=== PATIENT | male | born 1990 | race Caucasian/White ===

== ENCOUNTER 2022-04-25 22:53 | Inpatient (IN) | payer MEDICAID, SELFPAY ==
[2022-04-25 23:04] VITALS: BMI 25.7
--- NOTE | 2022-04-25 23:05 | W.ED.PSYCHS ---
Documented by User: JASMIN Wood 04/26/22 00:24 HPI - Psych General: Chief Complaint: Psychiatric Symptoms Stated Complaint: SI with plan Time Seen by Provider: 04/25/22 22:55 History of Present Illness: 31-year-old male patient comes in today for complaints of suicidal ideation. Patient at this time is in [facility] for his use of marijuana and nicotine. Patient reports that he was feeling suicidal and wanted to cut his wrists with a sharp rock he had found in the parking lot of the facility. Patient reports that he had a recent attempt of suicide about 3 months ago for overdosing on his antipsychotic medication. Patient has a history of suicidal ideation, schizophrenia, borderline personality disorder, and marijuana use. Patient denies any use of illicit substances tonight. Patient is alert and responds appropriately to questions. MD complaint: suicidal ideation Onset (ago): hour(s) Duration: getting worse History of same: Yes Relieving factors: none Context: recent drug abuse Associated psychiatric symptoms: suicidal ideation Associated symptoms: Reports suicidal ideation If self harm: has plan Review of Systems General: Reports: 10 or more systems reviewed and unremarkable except in HPI and below Const: Denies: fever(s) Card: Denies: chest pain Resp: Denies: dyspnea Musc: Denies: neck pain or back pain Psych: Reports: suicidal ideation [facility] ED PFSH: Medical History (Updated 05/08/22 @ 11:05 by BOB Rae) No pertinent family history Surgical History (Updated 05/08/22 @ 11:05 by BOB Rae) No pertinent past surgical history Physical Exam Const: COMMON NORMALS: alert HENMT: COMMON NORMALS: normocephalic HEAD & SCALP: normocephalic Neck/C-Spine: COMMON NORMALS: full ROM Resp: COMMON NORMALS: normal respiratory effort Cardio: COMMON NORMALS: regular rate RATE: regular rate Extremity: COMMON NORMALS: normal to inspection and full ROM Neuro: SENSORIUM/ORIENTATION: Yes alert Skin: COMMON NORMALS: no rashes or lesions noted and no wounds GENERAL SKIN EXAM: no rashes or lesions noted Course ED course: 2319, reviewed patient with Dr. Wells who agreed to the 96-hour hold due to patient's risk to self and affidavits from the [facility] staff and the law enforcement personnel. Patient is voluntary for the admission at this time also. 0020, discussed patient with Dr. Cardoso who agreed to admission to NPU to his service. Vital Signs: Vital signs: Vital Signs Temperature 98 F 05/05/22 15:57 Pulse Rate 81 05/05/22 15:57 Respiratory Rate 18 05/05/22 15:57 Blood Pressure 115/76 05/05/22 15:57 Pulse Oximetry 97 05/05/22 15:57 Oxygen Delivery Me thod 05/05/22 14:00 MDM - Psych Medical Decision Making 31-year-old male patient comes in [facility] ([facility]3]ight with suicidal ideation with a plan. Patient reports that he wants to cut his wrists with a sharp rock. Patient at this time is under treatment at [facility] for cannabis abuse. Patient does have a history of borderline personality disorder and suicidal ideation. Patient reports a recent attempt about 3 months ago for overdose on his Geodon. Patient is cooperative and is wanting admission to the neuropsychiatric unit. Lungs are clear to auscultation. Vital signs are normal. Differential diagnosis includes but not limited to suicidal ideation, major depressive disorder, adjustment disorder, substance abuse disorder, malingering. Laboratory values were unremarkable. Patient had no illicit substances on board. I reviewed the patient with Dr. Wells who agreed to the 96-hour hold and consultation with psychiatry for admission to the neuropsychiatric unit. Dr. Cardoso was consulted and agreed to plan for admission. Patient needs admission for further evaluation of psychiatric illness and risk to self due to suicidal ideation. Lab Data : 04/25/22 23:35 04/25/22 23:35 Laboratory Results WBC 8.7 10^3/uL (4.0-10.0) 04/25/22 23:35 RBC 4.98 10^6/uL (4.1-5.3) 04/25/22 23:35 Hgb 14.1 g/dL (11.7-16.6) 04/25/22 23:35 Hct 43.6 % (42.0-52.0) 04/25/22 23:35 MCV 87.6 fl (80-94) 04/25/22 23:35 MCH 28.3 pg (28.0-34.0) 04/25/22 23:35 MCHC 32.3 g/dL (30.0-36.0) 04/25/22 23:35 RDW 13.0 % (12.1-15.1) 04/25/22 23:35 Plt Count 251 10^3/cmm (130-400) 04/25/22 23:35 MPV 9.9 fL (7.4-10.4) 04/25/22 23:35 Neut % (Auto) 48.9 % 04/25/22 23:35 Lymph % (Auto) 36.4 % 04/25/22 23:35 Cobb % (Auto) 9.0 % 04/25/22 23:35 Eos % (Auto) 4.6 % 04/25/22 23:35 Baso % (Auto) 0.9 % 04/25/22 23:35 Neut # (Auto) 4.26 10^3/uL (1.8-7.7) 04/25/22 23:35 Lymph # (Auto) 3.2 10^3/uL (0.8-4.8) 04/25/22 23:35 [place] # (Auto) 0.8 10^3/uL (0.2-0.9) 04/25/22 23:35 Eos # (Auto) 0.4 10^3/uL (0.0-0.8) 04/25/22 23:35 Baso # (Auto) 0.1 10^3/uL (0.0-0.1) 04/25/22 23:35 Nucleated RBC % (auto) 0 % 04/25/22 23: Nucleated RBCs # 0.0 /100WBC 04/25/22 23:35 Sodium 135 mmol/L (136-145) L 04/25/22 23:35 Potassium 4.3 mmol/L (3.5-5.1) 04/25/22 23:35 Chloride 97 mmol/L (98-107) L 04/25/22 23:35 Carbon Dioxide 28 mmol/L (22-29) 04/25/22 23:35 Anion Gap 14.3 (5-19) 04/25/22 23:35 BUN 6 mg/dL (6-20) 04/25/22 23:35 Creatinine 0.9 mg/dL (0.7-1.2) 04/25/22 23:35 GFR Calculation 98.4 mL/min (90-130) 04/25/22 23:35 Glucose 111 mg/dL (65-115) 04/25/22 23:35 Calculated Osmolality 278 mOsm/kg (285-295) L 04/25/22 23:35 Calcium 9.6 mg/dL (8.5-10.5) 04/25/22 23:35 Total Bilirubin 0.6 mg/dL (0.15-1.2) 04/25/22 23:35 AST 37 U/L (0-40) 04/25/22 23:35 ALT 99 U/L (0-41) H 04/25/22 23:35 Alkaline Phosphatase 91 IU/L (40-130) 04/25/22 23:35 Total Protein 7.4 g/dL (6.6-8.7) 04/25/22 23:35 Albumin 4.6 g/dL (3.5-5.2) 04/25/22 23:35 Globulin 2.8 g/dL (1.3-4.6) 04/25/22 23:35 TSH 12.19 uIU/mL (0.27-4.20) H 04/25/22 23:35 Free T4 1.10 ng/dL (0.82-1.77) 04/25/22 23:35 Urine Color Straw (Yellow) 04/25/22 23:35 Urine Appearance Clear (CLEAR) 04/25/22 23:35 Urine pH 8 (5-7) H 04/25/22 23:35 Ur Specific [place] 1.010 (1.005-1.030) 04/25/22 23:35 Urine Protein Neg (Negative) 04/25/22 23:35 Urine Glucose (UA) Norm (Normal) 04/25/22 23:35 Urine Ketones Negative (Negative) 04/25/22 23:35 Urine Blood Neg (Negative) 04/25/22 23:35 Urine Nitrate Negative (Negative) 04/25/22 23:35 Urine Bilirubin Neg (Negative) 04/25/22 23:35 Prot Sulfosalicylic Acd Negative (Negative) 04/25/22 23:35 Urine Urobilinogen Neg mg/dL (Negative) 04/25/22 23:35 Ur Leukocyte Esterase Negative (Negative) 04/25/22 23:35 Salicylates 0.6 mg/dL (3-10) L 04/25/22 23:35 Urine Opiates Screen Negative ng/mL (Negative) 04/25/22 23:35 Acetaminophen < 5.0 ug/mL (10-30) L 04/25/22 23:35 Ur Barbiturates Screen Negative ng/mL (Negative) 04/25/22 23:35 Ur Phencyclidine Scrn Negative ng/mL (Negative) 04/25/22 23:35 Ur Amphetamines Screen Negative ng/mL (Negative) 04/25/22 23:35 U Benzodiazepines Scrn Negative ng/mL (Negative) 04/25/22 23:35 [place] 0.7 mmol/L (0.6-1.2) 04/25/22 23:35 Urine Cocaine Screen Negative ng/mL (Negative) 04/25/22 23:35 U Marijuana (THC) Screen Negative ng/mL (Negative) 04/25/22 23:35 Ethyl Alcohol < 10 mg/dL (0-10) 04/25/22 23:35 Discharge Plan Discharge Patient Disposition: Admitted As Inpatient Admit Provider: Fran Cardoso Clinical Impression: Suicidal ideation, Chronic schizophrenia Condition: Stable Discharge Diet: Regular Discharge Activity: Resume usual activity Sign Out Sign Out Data: Patient Sign Out occurred on 04/26/22 at 00:47. Patient's care was discussed, and care was transferred from to Vincent Wells MD. Coding Level of Care Code ED Mold Dresser for Chg Fwd Exam Detailed Documented by User: Vincent Wells MD 05/10/22 20:15 HPI - Psych General: Chief Complaint: Psychiatric Symptoms Stated Complaint: SI with plan Time Seen by Provider: 04/25/22 22:55 PFSH ED PFSH: Medical History (Updated 05/08/22 @ 11:05 by BOB Rae) No pertinent family history Surgical History (Updated 05/08/22 @ 11:05 by BOB Rae) No pertinent past surgical history Course Vital Signs: Vital signs: Vital Signs Temperature 98 F 05/05/22 15:57 Pulse Rate 81 05/05/22 15:57 Respiratory Rate 18 05/05/22 15:57 Blood Pressure 115/76 05/05/22 15:57 Pulse Oximetry 97 05/05/22 15:57 Oxygen Delivery Me thod 05/05/22 14:00 MDM - Psych Medical Decision Making 31-year-old male patient comes in [facility] with suicidal ideation with a plan. Patient reports that he wants to cut his wrists with a sharp rock. Patient at this time is under treatment at [facility] for cannabis abuse. Patient does have a history of borderline personality disorder and suicidal ideation. Patient reports a recent attempt about 3 months ago for overdose on his Geodon. Patient is cooperative and is wanting admission to the neuropsychiatric unit. Lungs are clear to auscultation. Vital signs are normal. Differential diagnosis includes but not limited to suicidal ideation, major depressive disorder, adjustment disorder, substance abuse disorder, malingering. Laboratory values were unremarkable. Patient had no illicit substances on board. I reviewed the patient with Dr. Wells who agreed to the 96-hour hold and consultation with psychiatry for admission to the neuropsychiatric unit. Dr. Cardoso was consulted and agreed to plan for admission. Patient needs admission for further evaluation of psychiatric illness and risk to self due to suicidal ideation. I discussed this case with Federico Melton NP. I reviewed laboratory studies and documentation. Vincent Wells MD Emergency Medicine Lab Data : 04/25/22 23:35 04/25/22 23:35 Laboratory Results WBC 8.7 10^3/uL (4.0-10.0) 04/25/22 23:35 RBC 4.98 10^6/uL (4.1-5.3) 04/25/22 23:35 Hgb 14.1 g/dL (11.7-16.6) 04/25/22 23:35 Hct 43.6 % (42.0-52.0) 04/25/22 23:35 MCV 87.6 fl (80-94) 04/25/22 23:35 MCH 28.3 pg (28.0-34.0) 04/25/22 23:35 MCHC 32.3 g/dL (30.0-36.0) 04/25/22 23:35 RDW 13.0 % (12.1-15.1) 04/25/22 23:35 Plt Count 251 10^3/cmm (130-400) 04/25/22 23:35 MPV 9.9 fL (7.4-10.4) 04/25/22 23:35 Neut % (Auto) 48.9 % 04/25/22 23:35 Lymph % (Auto) 36.4 % 04/25/22 23:35 Cobb % (Auto) 9.0 % 04/25/22 23:35 Eos % (Auto) 4.6 % 04/25/22 23:35 Baso % (Auto) 0.9 % 04/25/22 23:35 Neut # (Auto) 4.26 10^3/uL (1.8-7.7) 04/25/22 23:35 Lymph # (Auto) 3.2 10^3/uL (0.8-4.8) 04/25/22 23:35 [place] # (Auto) 0.8 10^3/uL (0.2-0.9) 04/25/22 23:35 Eos # (Auto) 0.4 10^3/uL (0.0-0.8) 04/25/22 23:35 Baso # (Auto) 0.1 10^3/uL (0.0-0.1) 04/25/22 23:35 Nucleated RBC % (auto) 0 % 04/25/22 23:35 Nucleated RBCs # 0.0 /100WBC 04/25/22 23:35 Sodium 135 mmol/L (136-145) L 04/25/22 23:35 Potassium 4.3 mmol/L (3.5-5.1) 04/25/22 23:35 Chloride 97 mmol/L (98-107) L 04/25/22 23:35 Carbon Dioxide 28 mmol/L (22-29) 04/25/22 23:35 Anion Gap 14.3 (5-19) 04/25/22 23:35 BUN 6 mg/dL (6-20) 04/25/22 23:35 Creatinine 0.9 mg/dL (0.7-1.2) 04/25/22 23:35 GFR Calculation 98.4 mL/min (90-130) 04/25/22 23:35 Glucose 111 mg/dL (65-115) 04/25/22 23:35 Calculated Osmolality 278 mOsm/kg (285-295) L 04/25/22 23:35 Calcium 9.6 mg/dL (8.5-10.5) 04/25/22 23:35 Total Bilirubin 0.6 mg/dL (0.15-1.2) 04/25/22 23:35 AST 37 U/L (0-40) 04/25/22 23:35 ALT 99 U/L (0-41) H 04/25/22 23:35 Alkaline Phosphatase 91 IU/L (40-130) 04/25/22 23:35 Total Protein 7.4 g/dL (6.6-8.7) 04/25/22 23:35 Albumin 4.6 g/dL (3.5-5.2) 04/25/22 23:35 Globulin 2.8 g/dL (1.3-4.6) 04/25/22 23:35 TSH 12.19 uIU/mL (0.27-4.20) H 04/25/22 23:35 Free T4 1.10 ng/dL (0.82-1.77) 04/25/22 23:35 Urine Color Straw (Yellow) 04/25/22 23:35 Urine Appearance Clear (CLEAR) 04/25/22 23:35 Urine pH 8 (5-7) H 04/25/22 23:35 Ur Specific [place] 1.010 (1.005-1.030) 04/25/22 23:35 Urine Protein Neg (Negative) 04/25/22 23:35 Urine Glucose (UA) Norm (Normal) 04/25/22 23:35 Urine Ketones Negative (Negative) 04/25/22 23:35 Urine Blood Neg (Negative) 04/25/22 23:35 Urine Nitrate Negative (Negative) 04/25/22 23:35 Urine Bilirubin Neg (Negative) 04/25/22 23:35 Prot Sulfosalicylic Acd Negative (Negative) 04/25/22 23:35 Urine Urobilinogen Neg mg/dL (Negative) 04/25/22 23:35 Ur Leukocyte Esterase Negative (Negative) 04/25/22 23:35 Salicylates 0.6 mg/dL (3-10) L 04/25/22 23:35 Urine Opiates Screen Negative ng/mL (Negative) 04/25/22 23:35 Acetaminophen < 5.0 ug/mL (10-30) L 04/25/22 23:35 Ur Barbiturates Screen Negative ng/mL (Negative) 04/25/22 23:35 Ur Phencyclidine Scrn Negative ng/mL (Negative) 04/25/22 23:35 Ur Amphetamines Screen Negative ng/mL (Negative) 04/25/22 23:35 U Benzodiazepines Scrn Negative ng/mL (Negative) 04/25/22 23:35 [place] 0.7 mmol/L (0.6-1.2) 04/25/22 23:35 Urine Cocaine Screen Negative ng/mL (Negative) 04/25/22 23:35 U Marijuana (THC) Screen Negative ng/mL (Negative) 04/25/22 23:35 Ethyl Alcohol < 10 mg/dL (0-10) 04/25/22 23:35 Discharge Plan Discharge Patient Disposition: Admitted As Inpatient Admit Provider: Fran Cardoso Clinical Impression: Suicidal ideation, Chronic schizophrenia Condition: Stable Discharge Diet: Regular Discharge Activity: Resume usual activity Sign Out Sign Out Data: Patient Sign Out occurred on 04/26/22 at 00:47. Patient's care was discussed, and care was transferred from to Vincent Wells MD. Coding Level of Care Code ED Mold Dresser for Wagnerg Fwd Exam Detailed
[2022-04-25 23:14] VITALS: BP 118/85; PULSE 72; RESP 16; TEMP 36.8; O2SAT 97
[2022-04-26] LABS: Add Urine Microscopic? NO; Charge for UA Resulting for Rev
[2022-04-26 00:03] LABS: Basophils # 0.1 10^3/uL (0.0-0.1); Basophils % 0.9 %; Eosinophils # 0.4 10^3/uL (0.0-0.8); Eosinophils % 4.6 %; Hematocrit 43.6 % (42.0-52.0); Hemoglobin 14.1 g/dL (11.7-16.6); Lymphocytes # 3.2 10^3/uL (0.8-4.8); Lymphocytes % 36.4 %; Mean Corpuscular HGB Conc 32.3 g/dL (30.0-36.0); Mean Corpuscular Hemoglobin 28.3 pg (28.0-34.0); Mean Corpuscular Volume 87.6 fl (80-94); Mean Platelet Volume 9.9 fL (7.4-10.4); Monocytes # 0.8 10^3/uL (0.2-0.9); Neutrophils # 4.26 10^3/uL (1.8-7.7); Neutrophils % 48.9 %; Nucleated Red Blood Cells % 0 %; Platelet Count 251 10^3/cmm (130-400); Red Blood Count 4.98 10^6/uL (4.1-5.3); White Blood Count 8.7 10^3/uL (4.0-10.0)
[2022-04-26 00:04] LABS: Lithium 0.7 mmol/L (0.6-1.2)
[2022-04-26 00:05] LABS: Bilirubin Urine Neg (Negative); Blood Urine Neg (Negative); Glucose Urine UA Norm (Normal); Ketones Urine Negative (Negative); Leukocyte Esterase Urine Negative (Negative); Nitrate Urine Negative (Negative); Protein Urine Neg (Negative); Sulfosalicylic Acid Urine Negative (Negative); Urine Appearance Clear (CLEAR); Urine Color Straw (Yellow); Urobilinogen Urine Neg (Negative); pH Urine 8 (5-7)
[2022-04-26 00:06] LABS: Amphetamines Screen Urine Negative (Negative); Barbiturates Screen Urine Negative (Negative); Benzodiazepines Screen Urine Negative (Negative); Cocaine Screen Urine Negative (Negative); Opiate Screen Urine Negative (Negative); PCP Screen Urine Negative (Negative); THC Screen Urine Negative (Negative)
[2022-04-26 00:19] LABS: Alanine Aminotransferase 99 U/L (0-41); Albumin Level 4.6 g/dL (3.5-5.2); Alkaline Phosphatase 91 IU/L (40-130); Anion Gap 14.3 (5-19); Aspartate Amino Transferase 37 U/L (0-40); Blood Urea Nitrogen 6 mg/dL (6-20); Calcium 9.6 mg/dL (8.5-10.5); Carbon Dioxide 28 mmol/L (22-29); Chloride 97 mmol/L (98-107); Globulin 2.8 g/dL (1.3-4.6); Glomerular Filtration Rate 98.4 mL/min (90-130); Glucose 111 mg/dL (65-115); Osmolality Calculated 278 mOsm/kg (285-295); Potassium 4.3 mmol/L (3.5-5.1); Salicylate 0.6 mg/dL (3-10); Sodium 135 mmol/L (136-145); Thyroid Stimulating Hormone 12.19 uIU/mL (0.27-4.20); Total Bilirubin 0.6 mg/dL (0.15-1.2); Total Protein 7.4 g/dL (6.6-8.7)
[2022-04-26 00:21] LABS: Acetaminophen < 5.0 ug/mL (10-30); Alcohol Level < 10 mg/dL (0-10)
[2022-04-26 01:23] VITALS: BP 114/79; PULSE 73; RESP 15; O2SAT 98
[2022-04-26 01:31] VITALS: BP 121/83; PULSE 88; RESP 18; TEMP 36.7; O2SAT 96
[2022-04-26 05:54] VITALS: BP 115/75; PULSE 74; RESP 16; TEMP 36.6; O2SAT 97
[2022-04-26 06:00] VITALS: BMI 25.7
[2022-04-26] MEDS: OLANZapine 5 mg ODT PO ×2 (09:09→13:22)
--- NOTE | 2022-04-26 09:11 | PC.NURSE ---
Patient with c/o anxiety this am. Zydis 5 mg sl given for this.
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
[2022-04-26] MEDS: fluoxetine 20 mg Capsule 40 MG PO (13:22)
[2022-04-26] MEDS: pantoprazole DR 40 mg Tablet PO (13:22)
--- NOTE | 2022-04-26 13:32 | PC.NURSE ---
Patient voiced increased anxiety. Zydis 5 mg sl given for this.
[2022-04-26 14:00] VITALS: BP 100/63; PULSE 84; RESP 20; TEMP 36.6; O2SAT 98
[2022-04-26 15:23] LABS: Lithium 0.4 mmol/L (0.6-1.2)
[2022-04-26] MEDS: lithium carbonate 300 mg Capsule PO (17:07)
[2022-04-26] MEDS: OXcarbazepine 300 mg Tablet PO (17:08)
[2022-04-26] MEDS: prazosin 1 mg Capsule 2 MG PO (19:54)
[2022-04-26] MEDS: trazodone 100 mg Tablet PO (19:54)
[2022-04-26 20:25] VITALS: BP 101/60; PULSE 61; RESP 15; TEMP 36.8; O2SAT 96
[2022-04-26 21:00] VITALS: BP 101/60; PULSE 61; RESP 15; TEMP 36.8; O2SAT 96
[2022-04-27 06:00] VITALS: BP 106/72; PULSE 65; RESP 15; TEMP 36.4; O2SAT 96
[2022-04-27] MEDS: lithium carbonate 300 mg Capsule PO ×2 (09:54→17:37)
[2022-04-27] MEDS: fluoxetine 20 mg Capsule 40 MG PO (09:54)
[2022-04-27] MEDS: pantoprazole DR 40 mg Tablet PO (09:54)
[2022-04-27] MEDS: OXcarbazepine 300 mg Tablet PO ×2 (09:54→17:44)
[2022-04-27] MEDS: lurasidone 20 mg Tablet 120 MG PO (09:58)
--- NOTE | 2022-04-27 11:57 | P.NPUPN_ITS ---
Subjective NPU Subjective: Patient presents today reporting that he is feeling okay. He continues to make comments that_his significant psychosis at this time. He talked about believing that he was the Archangel Jamshid and that he was sent to either destroy or save the world. He continues to lament about how the people who are in the program at [facility] had ill intent towards him. We discussed the medication Lybalvi and his treatment team trying to get tested. He really would look and see where that process was but that otherwise he might consider Abilify as an alternative and he seemed to understand and agreed proceed as is documented in his note. Mental Status Exam MSE Comments: This is a well nourished, well developed white male in hospital scrubs with limited grooming and eye contact. No abnormal movements except for psychomotor retardation. Mostly cooperative with exam in mild distress. Speech was decreased rate and volume. Mood described as depressed but manic and grungy, affect is subdued and restricted. Thought process, organized. Thought content: patient endorses passive wish but denies suicidal or homicidal ideation, endorses paranoia and grandiose, hyperreligious and persecutory delusions noted, and endorses auditory and visual hallucinations. Attention and concentration are mostly intact and memory appeared reliable though none were formally tested. He is alert and oriented three times. Insight and judgment are impaired. Impulse control is impaired. Vitals/I&O/Wt Last Vital Signs Temp 97.6 F 04/27/22 06:00 Pulse 65 04/27/22 06:00 Resp 15 04/27/22 06:00 BP 106/72 04/27/22 06:00 Pulse Ox 96 04/27/22 06:00 O2 Del Method 04/27/22 06:00 Weight last 48 hrs Weight 78.925 kg Weight 78.925 kg Data NPU : 04/25/22 23:35 04/25/22 23:35 A&P Assessment and plan (1) Suicidal ideation: Status: Acute (2) Chronic schizophrenia: Status: Acute Plan This is a 31 year old white male with a history of trauma, bipolar disorder and genetic loading for mental health and addiction issues who presents with active delusions reporting he believes everyone is out to kill him from [facility] [place], endorsing some success on medications and open to changes in his medications. 1. Continue current medications. We will evaluate and adjust medications as indicated. Treatment team at [facility] were trying to get him access to medication Lybalvi given that he has had limited success with other medications. Considering starting Abilify with his permission if that is not viable. 2. Encourage individual, group and milieu therapy 3. Continue q-15 minute check for safety 4. Recommend sober living treatment at the highest level of care to which the patient is willing to commit. Involuntary Hold Information 96 Hour Hold: 96 Hour Involuntary Admission: Yes 96 Hour Hold Ending Date: 04/30/22 96 Hour Hold Ending Time: 01:30 Attestations NPU Medical Necessity Statement*: Inpatient hospitalization is medically necessary and the clinically appropriate intervention at this time. We will monitor medications and make changes as indicated. Likely length of stay is 4-6 days. 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
[2022-04-27 14:00] VITALS: BP 95/65; PULSE 80; RESP 20; TEMP 36.6; O2SAT 95
[2022-04-27] MEDS: hyDROXYzine 25 mg Capsule 50 MG PO (16:35)
--- NOTE | 2022-04-27 16:37 | PC.NURSE ---
Patient at the nurses station with c/o anxiety. Hydroxyzine 50 mg po given.
[2022-04-27] MEDS: prazosin 1 mg Capsule 2 MG PO (19:48)
[2022-04-27] MEDS: trazodone 50 mg Tablet PO (19:49)
[2022-04-27 20:07] VITALS: BP 100/56; PULSE 69; RESP 15; TEMP 36.7; O2SAT 97
--- NOTE | 2022-04-27 20:26 | PC.NURSE ---
No suicidal thoughts at this time.
[2022-04-28 06:00] VITALS: BP 126/76; PULSE 68; RESP 17; TEMP 36.7; O2SAT 96
[2022-04-28] MEDS: fluoxetine 20 mg Capsule 40 MG PO (08:47)
[2022-04-28] MEDS: lithium carbonate 300 mg Capsule PO ×2 (08:47→18:26)
[2022-04-28] MEDS: OXcarbazepine 300 mg Tablet PO ×2 (08:47→18:26)
[2022-04-28] MEDS: pantoprazole DR 40 mg Tablet PO (08:47)
[2022-04-28 13:19] VITALS: BP 105/71; PULSE 62; RESP 17; TEMP 36.9; O2SAT 94
--- NOTE | 2022-04-28 15:33 | PC.NURSE ---
Medication ordered at [facility] Laybalvi 06/22 PO Once daily 30day supply with 1 refill
[2022-04-28] MEDS: lurasidone 80 mg Tablet 120 MG PO (16:30)
--- NOTE | 2022-04-28 17:42 | W.PM.NPUPNS ---
Subjective NPU Subjective: Patient presents today reporting that he is doing okay however his conversation continues to point to significant psychotic symptoms continuing to speak about being the Archangel Jamshid etc.. Ultimately will determine that he did get approved for the medication Lybalvi. However we have had some difficulty getting into the medication because Medicare is asking for specific piece of information before they approve a pharmacy to release it to us. Mental Status Exam MSE Comments: This is a well nourished, well developed white male in hospital scrubs with limited grooming and eye contact. No abnormal movements except for psychomotor retardation. Mostly cooperative with exam in mild distress. Speech was decreased rate and volume. Mood described as depressed but manic and grungy, affect is subdued and restricted. Thought process, organized. Thought content: patient endorses passive wish but denies suicidal or homicidal ideation, endorses paranoia and grandiose, hyperreligious and persecutory delusions noted, and endorses auditory and visual hallucinations. Attention and concentration are mostly intact and memory appeared reliable though none were formally tested. He is alert and oriented three times. Insight and judgment are impaired. Impulse control is impaired. Vitals/I&O/Wt Last Vital Signs Temp 98.2 F 04/28/22 20:12 Pulse 69 04/28/22 20:12 Resp 16 04/28/22 20:12 BP 107/65 04/28/22 20:12 Pulse Ox 100 04/28/22 20:12 O2 Del Method 04/28/22 20:12 Data NPU : 04/25/22 23:35 04/25/22 23:35 A&P Assessment and plan (1) Suicidal ideation: Status: Acute (2) Chronic schizophrenia: Status: Acute Plan This is a 31 year old white male with a history of trauma, bipolar disorder and genetic loading for mental health and addiction issues who presents with active delusions reporting he believes everyone is out to kill him from [facility] [place], endorsing some success on medications and open to changes in his medications. 1. Continue current medications. We will evaluate and adjust medications as indicated. Treatment team at [facility] were trying to get him access to medication Lybalvi given that he has had limited success with other medications. Considering starting Abilify with his permission if that is not viable. 2. Encourage individual, group and milieu therapy 3. Continue q-15 minute check for safety 4. Recommend sober living treatment at the highest level of care to which the patient is willing to commit. Involuntary Hold Information 96 Hour Hold: 96 Hour Involuntary Admission: Yes 96 Hour Hold Ending Date: 04/30/22 96 Hour Hold Ending Time: 01:30 Attestations NPU Medical Necessity Statement*: Inpatient hospitalization is medically necessary and the clinically appropriate intervention at this time. We will monitor medications and make changes as indicated. Likely length of stay is 4-6 days. 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
[2022-04-28] MEDS: OLANZapine 5 mg ODT PO (19:58)
[2022-04-28] MEDS: trazodone 50 mg Tablet PO (19:58)
[2022-04-28] MEDS: prazosin 1 mg Capsule 2 MG PO (19:59)
[2022-04-28 20:12] VITALS: BP 107/65; PULSE 69; RESP 16; TEMP 36.8; O2SAT 100
[2022-04-29 06:00] VITALS: BP 100/64; PULSE 65; RESP 15; TEMP 36.7; O2SAT 98
[2022-04-29] MEDS: pantoprazole DR 40 mg Tablet PO (08:14)
[2022-04-29] MEDS: lithium carbonate 300 mg Capsule PO (08:14)
[2022-04-29] MEDS: fluoxetine 20 mg Capsule 40 MG PO (08:14)
[2022-04-29] MEDS: OXcarbazepine 300 mg Tablet PO ×2 (08:14→23:24)
[2022-04-29] MEDS: lurasidone 80 mg Tablet 120 MG PO (08:15)
[2022-04-29] MEDS: OLANZapine 5 mg ODT PO ×2 (10:52→17:35)
--- NOTE | 2022-04-29 11:07 | PC.NURSE ---
PRN MEDICATIONS PT UP TO NURSES STATION REQUESTING ANXIETY MEDS. ZYDIS 5 MG GIVEN ORDERED.
[2022-04-29 14:00] VITALS: BP 96/64; PULSE 77; RESP 18; TEMP 36.9; O2SAT 98
--- NOTE | 2022-04-29 16:29 | W.PM.NPUPNS ---
Subjective NPU Subjective: Patient presents today reporting that he is still feeling as he has since he came here. We discussed the plan related to Medicare and the prior authorization which has been done and approved but then there is additional paperwork the Medicare is requiring to start the Lybalvi. They sent that paperwork today and we have signed and returned it and that we are awaiting their release of the medication. Mental Status Exam MSE Comments: This is a well nourished, well developed white male in hospital scrubs with limited grooming and eye contact. No abnormal movements except for psychomotor retardation. Mostly cooperative with exam in mild distress. Speech was decreased rate and volume. Mood described as depressed, affect is subdued and restricted. Thought process, organized. Thought content: patient endorses passive wish but denies suicidal or homicidal ideation, endorses paranoia and grandiose, hyperreligious and persecutory delusions noted, and endorses auditory and visual hallucinations. Attention and concentration are mostly intact and memory appeared reliable though none were formally tested. He is alert and oriented three times. Insight and judgment are impaired. Impulse control is impaired. Vitals/I&O/Wt Last Vital Signs Temp 98.5 F 04/29/22 14:00 Pulse 77 04/29/22 14:00 Resp 18 04/29/22 14:00 BP 96/64 04/29/22 14:00 Pulse Ox 98 04/29/22 14:00 O2 Del Method 04/29/22 06:00 Data NPU : 04/25/22 23:35 04/25/22 23:35 A&P Assessment and plan (1) Suicidal ideation: Status: Acute (2) Chronic schizophrenia: Status: Acute Plan This is a 31 year old white male with a history of trauma, bipolar disorder and genetic loading for mental health and addiction issues who presents with active delusions reporting he believes everyone is out to kill him from [facility] [place], endorsing some success on medications and open to changes in his medications. 1. Continue current medications. We will evaluate and adjust medications as indicated. Treatment team at [facility] were trying to get him access to medication Lybalvi given that he has had limited success with other medications. Started Lybalvi 10-10mg po qdaily when arrives. 2. Encourage individual, group and milieu therapy 3. Continue q-15 minute check for safety 4. Recommend sober living treatment at the highest level of care to which the patient is willing to commit. Involuntary Hold Information 96 Hour Hold: 96 Hour Involuntary Admission: Yes 96 Hour Hold Ending Date: 04/30/22 96 Hour Hold Ending Time: 01:30 Attestations NPU Medical Necessity Statement*: Inpatient hospitalization is medically necessary and the clinically appropriate intervention at this time. We will monitor medications and make changes as indicated. Likely length of stay is 4-6 days. 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
--- NOTE | 2022-04-29 17:25 | PC.NURSE ---
NEW ORDERS RECEIVED FROM DR. MICHEL TO OBTAIN FASTING GLUCOSE/ LIPID LEVEL AND LITHIUM AND OXYCARBAZIPINE LEVEL. HOLD LITHIUM AND OXYCARBAZIPINE UNTIL AFTER LABS ARE DRAWN TONIGHT AND THEN GIVE MEDS ORDERED. ALL LABS ENTERED, MEDS PLACED ON HOLD. PT EDUCATED ON NEW ORDERS. FILLED OUT PAPER WORK FOR [employer] TO GET LYBALVI 10-10MG, WILL FAX INFO IN THE AM TO INSURANCE ONCE LABS ARE DRAWN AND ALL INFORMATION IS OBTAINED.
--- NOTE | 2022-04-29 17:35 | PC.NURSE ---
PRN ZYPREXA ZYDIS 5 MG GIVEN PO PER PT C/O AGITATION
[2022-04-29 20:00] VITALS: BP 113/70; PULSE 65; RESP 17; TEMP 36.9; O2SAT 97
[2022-04-29] MEDS: trazodone 100 mg Tablet PO (20:10)
[2022-04-29] MEDS: prazosin 1 mg Capsule 2 MG PO (20:10)
[2022-04-29 20:49] LABS: Lithium 0.5 mmol/L (0.6-1.2)
[2022-04-29] MEDS: lithium carbonate 300 mg Capsule 600 MG PO (23:24)
--- NOTE | 2022-04-29 23:29 | PC.NURSE ---
Notified of [place] level of 0.5 from the lab.Oxcarbazapine lab is pending until Wednesday. Order recieved to increase [place] to 600 mg po at night and [place] 300 mg in the morning.
[2022-04-30 06:00] VITALS: BP 88/57; PULSE 59; RESP 16; TEMP 36.8; O2SAT 97
[2022-04-30] MEDS: OXcarbazepine 300 mg Tablet PO ×2 (07:55→22:46)
[2022-04-30] MEDS: pantoprazole DR 40 mg Tablet PO (07:55)
[2022-04-30] MEDS: lurasidone 80 mg Tablet 120 MG PO (07:56)
[2022-04-30] MEDS: lithium carbonate 300 mg Capsule PO (07:56)
[2022-04-30] MEDS: fluoxetine 20 mg Capsule 40 MG PO (07:56)
[2022-04-30 08:18] LABS: Cholesterol 211 mg/dL (0-200); Glucose Fasting 93 mg/dL (74-109); HDL Cholesterol 37 mg/dL (60-100); LDL Cholesterol Calculated 135 mg/dL (50-129); LDL HDL Ratio 3.65 RATIO (0.00-3.22); Triglycerides 197 mg/dL (0-150)
[2022-04-30] MEDS: hyDROXYzine 25 mg Capsule 50 MG PO (11:54)
--- NOTE | 2022-04-30 11:55 | PC.NURSE ---
PRN VISTARIL 50 MG GIVEN PO PER PT C/O STATED ANXIETY
[2022-04-30 14:00] VITALS: BP 101/66; PULSE 82; RESP 16; TEMP 36.6; O2SAT 96
--- NOTE | 2022-04-30 17:23 | P.NPUPN_ITS ---
Subjective NPU Subjective: Patient presents today reporting that he is excited about the prospect of starting the medication. He seems to be less driven about his concerns for people harming him at the [facility] facility. We discussed our plan to hopefully initiate medication and make sure that he is going in the r ight direction before returning him back to [facility] for continued treatment. He was agreeable to that plan and has signed in voluntarily. Mental Status Exam MSE Comments: This is a well nourished, well developed white male in hospital scrubs with limited grooming and eye contact. No abnormal movements except for psychomotor retardation. Mostly cooperative with exam in mild distress. Speech was decreased rate and volume. Mood described as a little better, affect is subdued and restricted. Thought process, organized. Thought content: patient endorses passive wish but denies suicidal or homicidal ideation, endorses paranoia and grandiose, hyperreligious and persecutory delusions noted, and endorses auditory and visual hallucinations. Attention and concentration are mostly intact and memory appeared reliable though none were formally tested. He is alert and oriented three times. Insight and judgment are impaired. Impulse control is impaired. Vitals/I&O/Wt Last Vital Signs Temp 98 F 04/30/22 19:50 Pulse 72 04/30/22 19:50 Resp 17 04/30/22 19:50 BP 121/81 04/30/22 19:50 Pulse Ox 97 04/30/22 19:50 O2 Del Method 04/30/22 19:50 Data NPU : 04/25/22 23:35 04/25/22 23:35 A&P Assessment and plan (1) Suicidal ideation: Status: Acute (2) Chronic schizophrenia: Status: Acute Plan This is a 31 year old white male with a history of trauma, bipolar disorder and genetic loading for mental health and addiction issues who presents with active delusions reporting he believes everyone is out to kill him from [facility], endorsing some success on medications and open to changes in his medications. 1. Continue current medications. We will evaluate and adjust medications as indicated. Treatment team at [facility] were trying to get him access to medication Lybalvi given that he has had limited success with other medications. Started Lybalvi 10-10mg po qdaily when arrives hopefully tomorrow. 2. Encourage individual, group and milieu therapy 3. Continue q-15 minute check for safety 4. Recommend sober living treatment at the highest level of care to which the patient is willing to commit. Involuntary Hold Information 96 Hour Hold: 96 Hour Involuntary Admission: Yes 96 Hour Hold Ending Date: 04/30/22 96 Hour Hold Ending Time: 01:30 Attestations NPU Medical Necessity Statement*: Inpatient hospitalization is medically necessary and the clinically appropriate intervention at this time. We will monitor medications and make changes as indicated. Likely length of stay is 3-5 days. 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
[2022-04-30 19:50] VITALS: BP 121/81; PULSE 72; RESP 17; TEMP 36.6; O2SAT 97
[2022-04-30] MEDS: OLANZapine 5 mg ODT PO (20:15)
[2022-04-30] MEDS: prazosin 1 mg Capsule 2 MG PO (20:15)
[2022-04-30] MEDS: lithium carbonate 300 mg Capsule 600 MG PO (20:15)
[2022-04-30] MEDS: trazodone 100 mg Tablet PO (20:16)
[2022-05-01 06:00] VITALS: BP 104/69; PULSE 64; RESP 15; TEMP 36.8; O2SAT 98
[2022-05-01] MEDS: lurasidone 80 mg Tablet 120 MG PO (09:27)
[2022-05-01] MEDS: OLANZapine 5 mg ODT PO (09:27)
[2022-05-01] MEDS: lithium carbonate 300 mg Capsule PO (09:28)
[2022-05-01] MEDS: fluoxetine 20 mg Capsule 40 MG PO (09:28)
[2022-05-01] MEDS: pantoprazole DR 40 mg Tablet PO (09:28)
[2022-05-01] MEDS: OXcarbazepine 300 mg Tablet PO ×2 (09:41→20:30)
[2022-05-01 14:00] VITALS: BP 109/72; PULSE 66; RESP 16; O2SAT 95
--- NOTE | 2022-05-01 15:52 | P.NPUPN_ITS ---
Subjective NPU Subjective: Patient presents today lying in bed and reporting that he is a little bit tired. He cannot identify whether this represented an issue with the new medication that was started (Lybalvi) or something else. We discussed that we had spoken to [facility] and the earliest they would be able to receive her back will be Wednesday. We discussed a hope that he has that he adjusted well to the medication over the next 3 days and he is able to go back on Wednesday if his thoughts have cleared up. Mental Status Exam MSE Comments: This is a well nourished, well developed white male in hospital scrubs with limited grooming and eye contact. No abnormal movements except for psychomotor retardation. Mostly cooperative with exam in mild distress. Speech was decreased rate and volume. Mood described as a little better, affect is subdued and restricted. Thought process, organized. Thought content: patient de nies suicidal or homicidal ideation, endorses paranoia and grandiose, hyperreligious and persecutory delusions noted, and endorses auditory and visual hallucinations. Attention and concentration are mostly intact and memory appeared reliable though none were formally tested. He is alert and oriented three times. Insight and judgment are impaired. Impulse control is impaired. Vitals/I&O/Wt Last Vital Signs Temp 98.2 F 05/01/22 06:00 Pulse 66 05/01/22 14:00 Resp 16 05/01/22 14:00 BP 109/72 05/01/22 14:00 Pulse Ox 95 05/01/22 14:00 O2 Del Method 05/01/22 14:00 Data NPU : 04/25/22 23:35 04/25/22 23:35 A&P Assessment and plan (1) Suicidal ideation: Status: Acute (2) Chronic schizophrenia: Status: Acute Plan This is a 31 year old white male with a history of trauma, bipolar disorder and genetic loading for mental health and addiction issues who presents with active delusions reporting he believes everyone is out to kill him from [facility], endorsing some success on medications and open to changes in his medications. 1. Continue current medications. We will evaluate and adjust medications as in dicated. Treatment team at [facility] were trying to get him access to medication Lybalvi given that he has had limited success with other medications. Started Lybalvi 10-10mg po qdaily. We will collaborate with the [facility] doctors to determine whether any changes in the [place] should occur prior to him going back. 2. Encourage individual, group and milieu therapy 3. Continue q-15 minute check for safety 4. Recommend sober living treatment at the highest level of care to which the patient is willing to commit. Involuntary Hold Information 96 Hour Hold: 96 Hour Involuntary Admission: Yes 96 Hour Hold Ending Date: 04/30/22 96 Hour Hold Ending Time: 01:30 Attestations NPU Medical Necessity Statement*: Inpatient hospitalization is medically necessary and the clinically appropriate intervention at this time. We will monitor medications and make changes as indicated. Likely length of stay is 3-4 days. 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
[2022-05-01] MEDS: acetaminophen 325 mg Tablet 650 MG PO (18:08)
--- NOTE | 2022-05-01 18:10 | PC.NURSE ---
NEW ORDERS NEW ORDERS FOR IBUPROFEN 600 MG Q 6 HOUR PRN FOR PAIN DUE TO C/O TOOTH PAIN
[2022-05-01] MEDS: lithium carbonate 300 mg Capsule 600 MG PO (20:30)
[2022-05-01] MEDS: prazosin 1 mg Capsule 2 MG PO (20:31)
[2022-05-01] MEDS: trazodone 100 mg Tablet PO (20:31)
[2022-05-01 22:00] VITALS: RESP 16
[2022-05-02 06:00] VITALS: RESP 16
[2022-05-02] MEDS: fluoxetine 20 mg Capsule 40 MG PO (09:12)
[2022-05-02] MEDS: lithium carbonate 300 mg Capsule PO (09:12)
[2022-05-02] MEDS: pantoprazole DR 40 mg Tablet PO (09:12)
[2022-05-02] MEDS: lurasidone 80 mg Tablet 120 MG PO (09:12)
[2022-05-02] MEDS: OXcarbazepine 300 mg Tablet PO ×2 (09:12→20:33)
[2022-05-02 14:00] VITALS: BP 113/76; PULSE 88; RESP 16; TEMP 36.4; O2SAT 95
--- NOTE | 2022-05-02 14:17 | P.NPUPN_ITS ---
Subjective NPU Subjective: Patient presents today reporting that he is feeling okay. He endorsed and hopes to return to [facility] however still expressing some of the paranoia related to being there. He reports he is tolerating the new medication and denying any concerns otherwise. We continue to discussed that th e earliest he would return to [facility] would be Wednesday but it would all be based on where he was with his psychosis. Mental Status Exam MSE Comments: This is a well nourished, well developed white male in hospital scrubs with limited grooming and eye contact. No abnormal movements except for psychomotor retardation. Mostly cooperative with exam in mild distress. Speech was decreased rate and volume. Mood described as a little better, affect is subdued and restricted. Thought process, organized. Thought content: patient denies suicidal or homicidal ideation, endorses less paranoia and grandiose, less hyperreligious and persecutory delusions noted, and endorses auditory and visual hallucinations. Attention and concentration are mostly intact and memory appeared reliable though none were formally tested. He is alert and oriented three times. Insight and judgment are impaired. Impulse control is impaired. Vitals/I&O/Wt Last Vital Signs Temp 97.6 F 05/02/22 14:00 Pulse 88 05/02/22 14:00 Resp 16 05/02/22 14:00 BP 113/76 05/02/22 14:00 Pulse Ox 95 05/02/22 14:00 O2 Del Method 05/02/22 14:00 Data NPU : 04/25/22 23:35 04/25/22 23:35 A&P Assessment and plan (1) Suicidal ideation: Status: Acute (2) Chronic schizophrenia: Status: Acute Plan This is a 31 year old white male with a history of trauma, bipolar disorder and genetic loading for mental health and addiction issues who presents with active delusions reporting he believes everyone is out to kill him from [facility] [place], endorsing some success on medications and open to changes in his medications. 1. Continue current medications. We will evaluate and adjust medications as indicated. Treatment team at [facility] were trying to get him access to medication Lybalvi given that he has had limited success with other medications. Started Lybalvi 10-10mg po qdaily. We will collaborate with the [facility] doctors to determine whether any changes in the [place] should occur prior to him going back. 2. Encourage individual, group and milieu therapy 3. Continue q-15 minute check for safety 4. Recommend sober living treatment at the highest level of care to which the patient is willing to commit. Involuntary Hold Information 96 Hour Hold: 96 Hour Involuntary Admission: Yes 96 Hour Hold Ending Date: 04/30/22 96 Hour Hold Ending Time: 01:30 Attestations NPU Medical Necessity Statement*: Inpatient hospitalization is medically necessary and the clinically appropriate intervention at this time. We will monitor medications and make changes as indicated. Likely length of stay is 3-4 days. Coding Level of Care Code Acute Management Aide for Chg Fwd Diagnoses Suicidal ideation R45.851 Chronic schizophrenia F20.9
[2022-05-02] MEDS: OLANZapine 5 mg ODT PO (17:52)
[2022-05-02] MEDS: phenyleph-mineral oil-petrolat Oint 28 gm 1 APPLIC TOPICAL (17:56)
[2022-05-02 20:20] VITALS: BP 106/62; PULSE 65; RESP 17; TEMP 36.6; O2SAT 95
[2022-05-02] MEDS: lithium carbonate 300 mg Capsule 600 MG PO (20:33)
[2022-05-02] MEDS: trazodone 100 mg Tablet PO (20:33)
[2022-05-02] MEDS: prazosin 1 mg Capsule 2 MG PO (20:33)
[2022-05-03 06:00] VITALS: BP 114/67; PULSE 54; RESP 106; TEMP 36.3; O2SAT 97
[2022-05-03] MEDS: lurasidone 80 mg Tablet 120 MG PO (07:51)
[2022-05-03] MEDS: fluoxetine 20 mg Capsule 40 MG PO (07:52)
[2022-05-03] MEDS: pantoprazole DR 40 mg Tablet PO (07:52)
[2022-05-03] MEDS: lithium carbonate 300 mg Capsule PO (07:52)
[2022-05-03] MEDS: OXcarbazepine 300 mg Tablet PO ×2 (07:55→19:51)
--- NOTE | 2022-05-03 09:09 | P.NPUPN_ITS ---
Subjective NPU Subjective: Patient presents today reporting that he is a little tired from the new medication. He did not report any thoughts about the individuals at [facility] having any ill thoughts towards him. And he did not seem to be anxious about seeing those people or that they might have ill will towards him. He reports that he is sleeping okay and eating fine. We discussed evaluating him in the morning to see if he is seeming to be prepared to face that challenge back to [facility] whether he needs another day or so on the medication. Mental Status Exam MSE Comments: This is a well nourished, well developed white male in hospital scrubs with limited grooming and eye contact. No abnormal movements except for mild psychomotor retardation. Mostly cooperative with exam in no acute distress. Speech was decreased rate and volume. Mood described as better, affect is less subdued and restricted. Thought process, organized. Thought content: patient denies suicidal or homicidal ideation, endorses less paranoia and less grandiose, no hyperreligious and less persecutory delusions noted, and denied active auditory and visual hallucinations. Attention and concentration are mostly intact and memory appeared reliable though none were formally tested. He is alert and oriented x3. Insight and judgment are improving. Impulse control is improving. Vitals/I&O/Wt Last Vital Signs Temp 97.3 F L 05/03/22 06:00 Pulse 54 L 05/03/22 06:00 Resp 106 H 05/03/22 06:00 BP 114/67 05/03/22 06:00 Pulse Ox 97 05/03/22 06:00 O2 Del Method 05/02/22 14:00 Weight last 48 hrs Weight 79.288 kg Data NPU : 04/25/22 23:35 04/25/22 23:35 A&P Assessment and plan (1) Suicidal ideation: Status: Acute (2) Chronic schizophrenia: Status: Acute Plan This is a 31 year old white male with a history of trauma, bipolar disorder and genetic loading for mental health and addiction issues who presents with active delusions reporting he believes everyone is out to kill him from [facility] [place], endorsing some success on medications and open to changes in his medications. 1. Continue current medications. We will evaluate and adjust medications as indicated. Treatment team at [facility] were trying to get him access to medication Lybalvi given that he has had limited success with other medications. Started Lybalvi 10-10mg po qdaily. We will collaborate with the [facility] doctors to determine whether any changes in the [place] should occur prior to him going back. 2. Encourage individual, group and milieu therapy 3. Continue q-15 minute check for safety 4. Recommend sober living treatment at the highest level of care to which the patient is willing to commit. Involuntary Hold Information 96 Hour Hold: 96 Hour Involuntary Admission: Yes 96 Hour Hold Ending Date: 04/30/22 96 Hour Hold Ending Time: 01:30 Attestations NPU Medical Necessity Statement*: Inpatient hospitalization is medically necessary and the clinically appropriate intervention at this time. We will monitor medications and make changes as indicated. Likely length of stay is 1-3 days. 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
[2022-05-03 13:57] VITALS: BP 104/68; PULSE 68; RESP 16; TEMP 36.7; O2SAT 97
[2022-05-03] MEDS: trazodone 100 mg Tablet PO (19:51)
[2022-05-03] MEDS: phenyleph-mineral oil-petrolat Oint 28 gm 1 APPLIC TOPICAL (19:51)
[2022-05-03] MEDS: lithium carbonate 300 mg Capsule 600 MG PO (19:52)
[2022-05-03] MEDS: prazosin 1 mg Capsule 2 MG PO (19:52)
[2022-05-03] MEDS: ondansetron 4 MG Tablet PO (19:56)
[2022-05-03 22:00] VITALS: BP 130/81; PULSE 76; RESP 20; TEMP 36.6; O2SAT 95
[2022-05-04 06:00] VITALS: BP 113/77; PULSE 68; RESP 18; TEMP 36.6; O2SAT 95
[2022-05-04] MEDS: pantoprazole DR 40 mg Tablet PO (07:50)
[2022-05-04] MEDS: lurasidone 80 mg Tablet 120 MG PO (07:50)
[2022-05-04] MEDS: fluoxetine 20 mg Capsule 40 MG PO (07:50)
[2022-05-04] MEDS: OXcarbazepine 300 mg Tablet PO ×2 (07:51→20:12)
[2022-05-04] MEDS: lithium carbonate 300 mg Capsule PO (07:51)
[2022-05-04 14:00] VITALS: BP 102/72; PULSE 68; RESP 17; TEMP 36.6; O2SAT 97
[2022-05-04 14:07] LABS: Oxcarbazepine Metabolite 9.5 mcg/mL (8.0-35.0)
--- NOTE | 2022-05-04 15:24 | W.PM.NPUPNS ---
Subjective NPU Subjective: Patient presents today reporting that he is tolerating the medication feeling maybe a little less tired. He continues to slowly be less fixated on there being a group of people at the rehab that have any particular issue with him. He denies any side effect of medication and we agreed he was still feeling good in the morning we would discharge him back to [facility] with hopes of continued improvement on the new medication. Mental Status Exam MSE Comments: This is a well nourished, well developed white male in hospital scrubs with limited grooming and eye contact. No abnormal movements except for mild psychomotor retardation. Mostly cooperative with exam in no acute distress. Speech was decreased rate and volume. Mood described as better, affect is less subdued. Thought process, organized. Thought content: patient denies suicidal or homicidal ideation, he denied any delusions and only slight paranoid thinking noted, and denied active auditory and visual hallucinations. Attention and concentration are mostly intact and memory appeared reliable though none were formally tested. He is alert and oriented x3. Insight and judgment are improving. Impulse control is improving. Vitals/I&O/Wt Last Vital Signs Temp 98 F 05/04/22 14:00 Pulse 68 05/04/22 14:00 Resp 17 05/04/22 14:00 BP 102/72 05/04/22 14:00 Pulse Ox 97 05/04/22 14:00 O2 Del Method 05/04/22 14:00 Weight last 48 hrs Weight 79.288 kg Data NPU : 04/25/22 23:35 04/25/22 23:35 A&P Assessment and plan (1) Suicidal ideation: Status: Acute (2) Chronic schizophrenia: Status: Acute Plan This is a 31 year old white male with a history of trauma, bipolar disorder and genetic loading for mental health and addiction issues who presents with active delusions reporting he believes everyone is out to kill him from [facility], endorsing some success on medications and open to changes in his medications. 1. Continue current medications. We will evaluate and adjust medications as indicated. Treatment team at [facility] were trying to get him access to medication Lybalvi given that he has had limited success with other medications. Started Lybalvi 10-10mg po qdaily. We will collaborate with the [facility] doctors to determine whether any changes in the Latuda should occur prior to him going back. 2. Encourage individual, group and milieu therapy 3. Continue q-15 minute check for safety 4. Recommend sober living treatment at the highest level of care to which the patient is willing to commit. 5. we will plan to discharge tomorrow morning and recommend that treatment team there begins possible decreasing of Latuda. Involuntary Hold Information 96 Hour Hold: 96 Hour Involuntary Admission: Yes 96 Hour Hold Ending Date: 04/30/22 96 Hour Hold Ending Time: 01:30 Attestations NPU Medical Necessity Statement*: Inpatient hospitalization is medically necessary and the clinically appropriate intervention at this time. We will monitor medications and make changes as indicated. Likely length of stay is 1-2 days. Tentative plan for discharge in the morning. Coding Level of Care Code Acute Meatman for Terri Smith Diagnoses Suicidal ideation R45.851 Chronic schizophrenia F20.9
[2022-05-04] MEDS: lithium carbonate 300 mg Capsule 600 MG PO (20:12)
[2022-05-04] MEDS: trazodone 100 mg Tablet PO (20:12)
[2022-05-04] MEDS: prazosin 1 mg Capsule 2 MG PO (20:12)
[2022-05-04 20:54] VITALS: BP 118/82; PULSE 63; RESP 16; TEMP 36.8; O2SAT 95
[2022-05-05 06:00] VITALS: BP 101/70; PULSE 80; RESP 18; TEMP 36.7; O2SAT 95
[2022-05-05] MEDS: lurasidone 80 mg Tablet 120 MG PO (08:35)
[2022-05-05] MEDS: pantoprazole DR 40 mg Tablet PO (08:35)
[2022-05-05] MEDS: fluoxetine 20 mg Capsule 40 MG PO (08:35)
[2022-05-05] MEDS: OXcarbazepine 300 mg Tablet PO (08:35)
[2022-05-05] MEDS: lithium carbonate 300 mg Capsule PO (08:36)
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
[2022-05-05 14:00] VITALS: BP 115/76; PULSE 81; RESP 18; TEMP 36.6; O2SAT 97
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
[2022-05-05 14:47] VITALS: BP 115/76; PULSE 81; RESP 18; TEMP 36.6; O2SAT 97
[2022-05-05 15:57] VITALS: BP 115/76; PULSE 81; RESP 18; TEMP 36.6; O2SAT 97
== END 2022-05-05 16:10 | disposition home or self-care (01) | DRG 885 ==
LOC: ER 04-26 00:22 → NP 04-26 00:47
PROVIDERS: Nurse Practitioner Family; Admitting Provider Psychiatry & Neurology Psychiatry; Emergency Provider Emergency Medicine; Visit Provider Psychiatry & Neurology Psychiatry
DX: F20.9 Schizophrenia, unspecified (principal); R45.851 Suicidal ideations; F12.90 Cannabis use, unspecified, uncomplicated; F17.200 Nicotine dependence, unspecified, uncomplicated; Z91.51 Personal history of suicidal behavior; F60.3 Borderline personality disorder; Z59.01 Sheltered homelessness; Z79.891 Long term (current) use of opiate analgesic
CPT/HCPCS: 36415; 80053; 80061; 80178; 80183; 80306; 80307; 81003; 82947; 84439; 84443; 85025; 97150; 97165; 99285; Q0162

== ENCOUNTER 2022-05-07 10:54 | Emergency (ER) | payer MEDICAID, SELFPAY ==
[2022-05-07 11:08] VITALS: BP 112/71; PULSE 72; RESP 16; TEMP 36.6; O2SAT 96; BMI 25.4
[2022-05-07 11:18] VITALS: BP 112/71; PULSE 72; RESP 16; TEMP 36.6; O2SAT 96
--- NOTE | 2022-05-07 11:21 | W.ED.EXTPRO ---
HPI - Extremity Problem General: Chief complaint: Extremity Injury, Upper Stated complaint: Urgent Care sent for an Xray Time Seen by Provider: 05/07/22 11:16 History of Present Illness: Patient is a 31-year-old male comes to the ED with right shoulder injury. Patient states a couple days ago he was stacking some lumber and he went to throw a piece and it caused pain in his right shoulder. He has full range of motion right shoulder endorses pain with movement. Denies any other complaints. Associated symptoms: Deny chest pain, fever(s) or rash Review of Systems Const: Denies: fever(s), chills or fatigue Eyes: Denies: change in vision or eye discomfort ENMT: Denies: throat pain, odynophagia, nasal discharge or nasal congestion Card: Denies: chest pain, palpitations, edema, swelling of feet/ankles, dyspnea on exertion or orthopnea Resp: Denies: dyspnea, productive cough or non-productive cough GI: Denies: abdominal pain, nausea, vomiting, diarrhea, constipation or hematochezia : Denies: flank pain, difficulty urinating, dysuria or hematuria Musc: Reports: extremity pain (right shoulder injury); Denies: neck pain, back pain or extremity swelling Skin/Breast: Denies: rash or new lesions Neuro: Denies: headache(s), numbness in extremities or weakness in extremities PFS ED PFSH: Medical History (Updated 05/08/22 @ 11:05 by BOB Rae) No pertinent family history Surgical History (Updated 05/08/22 @ 11:05 by BOB Rae) No pertinent past surgical history Physical Exam Const: COMMON NORMALS: patient oriented x3 HENMT: COMMON NORMALS: normocephalic HEAD & SCALP: normocephalic MOUTH: Normal oral and palatal mucosa present THROAT: posterior oropharynx normal and uvula midline Neck/C-Spine: COMMON NORMALS: supple GENERAL: Yes normal visual inspection Resp: COMMON NORMALS: normal respiratory effort, No retractions, No use of accessory muscles and clear to auscultation bilaterally AUSCULTATION: clear to auscultation bilaterally Cardio: COMMON NORMALS: regular rate, regular rhythm, S1 normal heart sound present, S2 normal heart sound present, No gallops present (Cardio), No clicks present (Cardio), No murmurs present (Cardio) and Peripheral pulses 2+ throughout RATE: regular rate RHYTHM: regular rhythm HEART SOUNDS: S1 normal heart sound present and S2 normal heart sound present PERIPHERAL PULSES: Peripheral pulses 2+ throughout GI: COMMON NORMALS: Normal to inspection, nondistended, normoactive bowel sounds present, Soft to palpation, non-tender and no masses PALPATION: Yes Soft to palpation : COMMON NORMALS: Yes no CVA tenderness BLADDER/KIDNEY EXAM: Yes no CVA tenderness Back/Pelvis: COMMON NORMALS: no CVA tenderness Extremity: NARRATIVE EXTREMITY EXAM: Patient has some muscular tenderness in the right scapula blade. No other acute exam findings. RIGHT UPPER EXTREMITY: Yes shoulder joint Right shoulder: Yes Right shoulder joint inspection exam, Yes palpation, Yes Right shoulder joint ROM exam (Full range of motion) and Yes Right shoulder joint neurovascular exam (Intact) Neuro: COMMON NORMALS: patient oriented x3 GAIT: Yes Normal gait present Skin: GENERAL SKIN EXAM: dry skin Course Vital Signs: Vital signs: Vital Signs Temperature 97.8 F 05/07/22 11:18 Pulse Rate 72 05/07/22 11:18 Respiratory Rate 16 05/07/22 11:18 Blood Pressure 112/71 05/07/22 11:18 Pulse Oximetry 96 05/07/22 11:18 MDM - Extremity (Nontraumatic) Medical Decision Making Patient is a male comes to the ED with right shoulder pain. Patient has full range of motion in right shoulder and is neurovascular intact. He has some muscular tenderness to right scapula. X-ray right shoulder showed no acute findings. Patient diagnosed with right shoulder strain and was discharged home. He has a shoulder sling that he is currently using and told to continue using it for the next day or 2 of her shoulder to rest and heal. He was discharged with a prescription for ibuprofen 600s. Told to follow-up with PCP in the next week. Lab Data Radiology Impressions Shoulder X-Ray 05/07/22 11:32 Impression: Negative right shoulder. Discharge Plan Discharge Patient Disposition: Home Clinical Impression: Right shoulder strain Qualifiers: Encounter type: initial encounter Qualified Code(s): S46.911A - Strain of unspecified muscle, fascia and tendon at shoulder and upper arm level, right arm, initial encounter Condition: Stable Prescriptions: New ibuprofen 800 mg tablet 800 mg PO Q8H PRN (Reason: pain) Qty: 15 0RF No Action ibuprofen 600 mg tablet 600 mg PO Q8H PRN (Reason: pain) Qty: 30 0RF olanzapine 5 mg Tablet,Disintegrating 5 mg PO QID PRN (Reason: Anxiety) oxcarbazepine 300 mg Tablet 300 mg PO BID pantoprazole 40 mg Tablet,Delayed Release (Dr/Ec) 40 mg PO DAILY cholecalciferol (vitamin D3) 100 mcg (4,000 unit) Capsule See Rx Instructions .ROUTE .COMPLEX Rx Instructions: 50,000 unit orally once a week on Wednesday. prazosin 2 mg Capsule 2 mg PO BEDTIME fluoxetine 40 mg Capsule 40 mg PO DAILY hydroxyzine pamoate 50 mg Capsule 50 mg PO TID PRN (Reason: Anxiety) trazodone 100 mg Tablet 100 mg PO BEDTIME Latuda 120 mg Tablet 120 mg PO DAILY Rx Instructions: must administer with food (at least 350 calories) Lybalvi 10 mg tablet 10 mg PO DAILY Rx Instructions: Lybalvi 10mg/10mg (olanzapine and samidorphan) tablets Take one tablet PO Daily lithium carbonate 300 mg Capsule 600 mg PO 2100 30 Days Qty: 60 1RF lithium carbonate 300 mg Capsule 300 mg PO 0900 30 Days Qty: 30 1RF Discharge Orders: Discharge ED (Routine); Ordered 05/07/22 Ordered By: Barron Ascencio Discharge Diet: Regular Discharge Activity: Increase activity as tolerated Patient Instructions: Shoulder Sprain (ED) Activity Restrictions/Additional Instructions: Follow-up with PCP within the next week for reevaluation. Wear shoulder sling for the next 2 to 3 days to help with symptoms. Remove arm from sling multiple times a day to prevent frozen shoulder. take medications as prescribed. Return to the ER or your medical provider if condition worsens. Please read and understand discharge instructions. Thank you for choosing [facility] for your healthcare needs today. Please realize this is an emergency room and that we are providing you with a medical screening exam and this may not be complete and all inclusive of all the testing and or work up that you may need to determine your ailment or severity of your illness. It is very important that you follow up as instructed or that you return to the Emergency Department should you have concerns or if your condition changes or worsens in any way. Coding Level of Care Code ED Density Control Puncher for Terri Smith Exam Comprehensive
--- NOTE | 2022-05-07 11:32 | XR_ITS ---
WS: [id number] Right shoulder, 3 views, 05/07/2022 Clinical Data: injured right shoulder Comparison: None. Findings: No fractures or dislocations are seen. The AC joint is normal. The adjacent right clavicle, right sca pula and ribs are normal. The soft tissues are unremarkable. XR/XR shoulder RT min 2V* [id number] Impression: Negative right shoulder.
== END 2022-05-07 12:04 | disposition home or self-care (01) ==
PROVIDERS: Emergency Provider Physician Assistant
DX: S46.911A Strain of unspecified muscle, fascia and tendon at shoulder and upper arm level, right arm, initial encounter (principal); X58.XXXA Exposure to other specified factors, initial encounter
CPT/HCPCS: 73030; 99283

== ENCOUNTER → 2022-05-22 11:12 | Outpatient (BNVA) | payer MEDICAID, SELFPAY | PROVIDERS: Visit Provider Nurse Practitioner | DX: Z79.899 Other long term (current) drug therapy (principal) | CPT/HCPCS: 80178 ==

== ENCOUNTER → 2022-06-03 08:19 | Outpatient (BNVA) | payer MEDICAID, SELFPAY | PROVIDERS: Visit Provider Nurse Practitioner | DX: F20.9 Schizophrenia, unspecified (principal); Z79.899 Other long term (current) drug therapy | CPT/HCPCS: 80178 ==